=== PATIENT | male | born 1945 | race Caucasian/White ===

== ENCOUNTER 2023-04-15 05:00 | Day surgery (SDC) | payer OTHER ==
[~2023-04-15] VITALS: Ht 170.2 cm; Wt 107.5 kg
[~2023-04-15 05:00] MED LIST: ALEVE 220MG220 MG PO; IBU800 M1 PO; LEVAQUIN 5500 MG/TA1 PO; LR 1,000 ML IV SCH; NO HOME MEDICATIONS; NORCO 325 MG-51 TAB PO; PYRIDIUM200 M1 PO; SAW PALMETTO6 X SL; SYNTHROID 0.0.025 MG PO; SYNTHROID0.05 MG/TA PO
[2023-04-15] MEDS ORDERED: COZAAR 50MG50 MG/TAB PO (05:44)
[2023-04-15] MEDS ORDERED: GARLIC PO (05:45)
[2023-04-15] MEDS ORDERED: ZINC PO (05:45)
[2023-04-15] MEDS ORDERED: DAZIDOX10 MG PO (06:16)
[2023-04-15] MEDS ORDERED: Ondansetron 4 MG/2 ML VIAL ONE (06:39)
[2023-04-15] MEDS ORDERED: dexAMETHasone 10 MG/ML VIAL ONE (06:39)
[2023-04-15] MEDS ORDERED: Lidocaine PF 2% (20 MG/ML) 5 ML VIAL ONE (06:39)
[2023-04-15] MEDS ORDERED: fentaNYL 50 MCG/ML 2 ML VIAL ONE ×2 (06:40→07:25)
[2023-04-15 06:51] VITALS: BP 145/71; PULSE 67; TEMP 97.6
[2023-04-15] MEDS ORDERED: Lidocaine 1% w EPI (1:100,000) 20 ML Multi-Dose VIAL IJ ONE (07:20)
[2023-04-15] MEDS ORDERED: dexAMETHasone 4 MG/ML VIAL IJ ONE (07:27)
[2023-04-15] MEDS ORDERED: hydrALAZINE 20 MG/ML 1 ML VIAL IV PRN (07:30)
[2023-04-15] MEDS ORDERED: Ondansetron 4 MG/2 ML VIAL IV PRN (07:30)
[2023-04-15] MEDS ORDERED: HYDROmorphone 2 MG/1 ML VIAL IV PRN (07:30)
[2023-04-15] MEDS ORDERED: fentaNYL 50 MCG/ML 2 ML VIAL IV PRN (07:30)
[2023-04-15] MEDS ORDERED: Meperidine 50 MG/ML 1 ML VIAL IV PRN (07:30)
[2023-04-15] MEDS ORDERED: Ketorolac 30 MG/ML VIAL IV PRN (07:30)
[2023-04-15] MEDS ORDERED: ePHEDrine 50 MG/ML VIAL ONE (07:36)
[2023-04-15] MEDS ORDERED: Morphine 4 MG/ML VIAL IV PRN (08:00)
[2023-04-15] MEDS ORDERED: oxyCODONE 5 MG TAB PO PRN ×2 (08:00)
[2023-04-15] MEDS ORDERED: Naloxone 0.4 MG/ML VIAL IV PRN (08:00)
[2023-04-15] MEDS ORDERED: NORCO 325 MG-51 TAB PO (08:04)
[2023-04-15] MEDS ORDERED: CEPHALEXIN500 M1 PO (08:04)
[2023-04-15 08:20] VITALS: BP 147/76; PULSE 74; TEMP 97.1
[2023-04-15 08:35] VITALS: BP 157/68; PULSE 66
[2023-04-15 08:50] VITALS: BP 151/74; PULSE 68
[2023-04-15] MEDS ORDERED: Acetaminophen 500 MG TAB PO SCH (08:53)
--- NOTE | 2023-04-15 09:00 | NUR ---
0820 RETURNS TO ROOM 8 PER CART. AWAKE, ALERT. HOB ELEVATED 50 DEGREES. RESP UNLABORED. JUMA WRAPPED DRESSING RIGHT KNEE CLEAN DRY AND INTACT. NEURO/CIRC CHECKS INTACT. EXTREMITY ELEVATED WITH ICE PACK IN PLACE. DENIES PAIN. VITAL SIGNS OBTAINED. CALL LIGHT AT SIDE 0830 AWAKE, ALERT. TOLERATES PO WATER AND COFFEE WITHOUT NAUSEA 0845 DISCHARGE INSTRUCTIONS REVIEWED. PATIENT VERBALIZES UNDERSTANDING. COPY PROVIDED IN DISCHARGE FOLDER. 0854 SITS ON EDGE OF CART. DRESSES SELF. BEARS WEIGHT ON RIGHT LOWER EXTREMITY. REPORTS MILD DISCOMFORT. DENIES NEED FOR PAIN MED.
[2023-04-15] MEDS ORDERED: Ibuprofen 800 MG TAB PO SCH (11:53)
== END 2023-04-15 09:03 | disposition home or self-care (01) ==
LOC: SDCO 05:00
DX: S83.281A Other tear of lateral meniscus, current injury, right knee, initial encounter (principal); S83.241A Other tear of medial meniscus, current injury, right knee, initial encounter; M25.561 Pain in right knee; M94.8X6 Other specified disorders of cartilage, lower leg; Z87.891 Personal history of nicotine dependence
CPT/HCPCS: J0665; J0690; J1100; J2405; J2704; J3010; J7120